=== PATIENT | female | born 1995 | race Caucasian/White ===

== ENCOUNTER 2020-04-06 15:51 | Emergency (ER) | payer OTHER, SELFPAY ==
[~2020-04-06] VITALS: Ht 154.9 cm; Wt 64.4 kg
[2020-04-06 15:51] VITALS: BP 137/83
[2020-04-06] MEDS ORDERED: KETOROLAC 30 MG/ML VIAL IVP ONE (16:30)
[2020-04-06 17:59] LABS: BASOPHILS % (AUTO) 0.3 % (0.0-2.0); EOSINOPHILS % (AUTO) 0.4 % (0.0-4.0); HEMATOCRIT 41.5 % (36-48); HEMOGLOBIN 14.2 g/dL (12.0-16.0); LYMPHOCYTES # (AUTO) 2.2 K/uL (2.5-16.5); LYMPHOCYTES % (AUTO) 23.2 % (20.5-51.1); MEAN CORPUSCULAR HEMOGLOBIN 33 pg (27-31); MEAN CORPUSCULAR HGB CONC 34 g/dL (33-37); MONOCYTES # (AUTO) 0.6 K/uL (0.8-1.0); MONOCYTES % (AUTO) 6.6 % (1.7-9.3); NEUTROPHILS # (AUTO) 6.7 K/uL (1.8-7.7); NEUTROPHILS % (AUTO) 69.5 % (42.2-75.2); PLATELET COUNT (AUTO) 278 K/uL (140-450); RED BLOOD CELL COUNT(AUTO) 4.33 MIL/uL (4.20-5.40); RED CELL DISTRIBUTION WIDTH 12.1 % (11.6-13.7); WHITE BLOOD COUNT (AUTO) 9.6 K/uL (4.8-10.8)
[2020-04-06] MEDS ORDERED: HYDROmorphone PFS 2 MG/ML SYR IVP SCH (18:00)
[2020-04-06 18:10] LABS: CARBON DIOXIDE 24.5 mmol/L (21-32); CREATININE 0.7 mg/dL (0.6-1.3); POTASSIUM 3.5 mmol/L (3.5-5.1)
[2020-04-06 18:10] LABS: BILIRUBIN,URINE NEGATIVE (NEGATIVE); BLOOD, URINE NEGATIVE (NEGATIVE); COLOR,URINE YELLOW (YELLOW); LEUKOCYTE ESTERASE ,URINE TRACE (NEGATIVE); NITRITE, URINE NEGATIVE (NEGATIVE); UGLUCOSE NEGATIVE (NEGATIVE)
[2020-04-06 18:12] LABS: APPEARANCE,URINE HAZY (CLEAR)
[2020-04-06 18:16] LABS: ALBUMIN 4.7 g/dL (3.4-5.0); TOTAL BILIRUBIN 1.5 mg/dL (0.0-1.0)
[2020-04-06 18:21] LABS: RBC,URINE NONE SEEN /HPF (0-5); WBC,URINE 0-5 /HPF (0-5)
[2020-04-06 19:18] VITALS: BP 128/81
== END 2020-04-06 19:18 | disposition home or self-care (01) ==
LOC: MED 15:51
DX: N94.89 Other specified conditions associated with female genital organs and menstrual cycle (principal); N83.292 Other ovarian cyst, left side
CPT/HCPCS: 36415; 76856; 80053; 81001; 81025; 85025; 93976; 96374; 96375; 99291; J1170; J1885; Q0092; 99284

== ENCOUNTER 2020-04-11 05:10 | Day surgery (SDC) | payer OTHER, SELFPAY ==
[2020-04-05 12:36] LABS: BASOPHILS % (AUTO) 0.2 % (0.0-2.0); EOSINOPHILS # (AUTO) 0.1 K/uL (0-0.4); EOSINOPHILS % (AUTO) 1.8 % (0.0-4.0); HEMATOCRIT 40.4 % (36-48); HEMOGLOBIN 13.6 g/dL (12.0-16.0); LYMPHOCYTES # (AUTO) 1.9 K/uL (2.5-16.5); LYMPHOCYTES % (AUTO) 36.1 % (20.5-51.1); MEAN CORPUSCULAR HEMOGLOBIN 33 pg (27-31); MEAN CORPUSCULAR HGB CONC 34 g/dL (33-37); MEAN CORPUSCULAR VOLUME 97.2 fL (80-94); MONOCYTES # (AUTO) 0.4 K/uL (0.8-1.0); MONOCYTES % (AUTO) 7.2 % (1.7-9.3); NEUTROPHILS # (AUTO) 2.9 K/uL (1.8-7.7); NEUTROPHILS % (AUTO) 54.7 % (42.2-75.2); PLATELET COUNT (AUTO) 252 K/uL (140-450); RED BLOOD CELL COUNT(AUTO) 4.16 MIL/uL (4.20-5.40); RED CELL DISTRIBUTION WIDTH 12.7 % (11.6-13.7); WHITE BLOOD COUNT (AUTO) 5.3 K/uL (4.8-10.8)
[2020-04-05 12:38] LABS: CARBON DIOXIDE 26.3 mmol/L (21-32); CREATININE 0.7 mg/dL (0.6-1.3); POTASSIUM 4.3 mmol/L (3.5-5.1); TOTAL BILIRUBIN 1.2 mg/dL (0.0-1.0)
[2020-04-05 12:39] LABS: ALBUMIN 4.6 g/dL (3.4-5.0)
[~2020-04-11] VITALS: Ht 154.9 cm; Wt 62.1 kg
[2020-04-11] MEDS ORDERED: NACL 0.9% 1,000 ML IV SCH (07:11)
[2020-04-11] MEDS ORDERED: MEPERIDINE 25 MG/ML SYR IVP PRN (07:15)
[2020-04-11] MEDS ORDERED: HYDROmorphone 1 MG/ML AMP IVP PRN (07:15)
[2020-04-11] MEDS ORDERED: ONDANSETRON 4 MG/2 ML VIAL IVP PRN (07:15)
[2020-04-11] MEDS ORDERED: BUPIVACAINE-MPF/EPI 0.25% 30 ML VIAL INJ ONE (07:35)
[2020-04-11] MEDS: HYDROmorphone PFS 2 MG/ML SYR ONE ×2 (08:50→09:00)
== END 2020-04-11 10:50 | disposition home or self-care (01) ==
LOC: MDS 05:10 → MMU 05:40 → MDS 10:50
PROVIDERS: ATTEND Obstetrics & Gynecology
DX: N83.202 Unspecified ovarian cyst, left side (principal); Z79.899 Other long term (current) drug therapy; Z11.59 Encounter for screening for other viral diseases
CPT/HCPCS: 58662; 80053; 81025; 84702; 85025; J1170; J3490; J7030; J7120; U0003

== ENCOUNTER 2020-04-27 18:33 | Emergency (ER) | payer OTHER, SELFPAY ==
[~2020-04-27] VITALS: Ht 154.9 cm; Wt 63.5 kg
[2020-04-27 18:48] VITALS: BP 108/77
--- NOTE | 2020-04-27 18:56 | NUR ---
PT AMB TO BED 12
--- NOTE | 2020-04-27 18:59 | NUR ---
25 y/o female from home c/o bilateral eye swelling and mild rash s/p eating a taco 15 min prior to arrival. Does not appear in respiratory distress. States 8/10 burning sensation to tongue and eyes. Airway intact. Redness noted to lt arm with itching at this time. RR even and unlabored, hob elevated. vss. LMP 04/11/2020 medhx: denies
[2020-04-27] MEDS ORDERED: methylPREDNISolone SS 125 MG/2 ML VIAL IVP STA (19:07)
[2020-04-27] MEDS ORDERED: diphenhydrAMINE 50 MG CAP PO STA (19:07)
--- NOTE | 2020-04-27 19:12 | NUR ---
RECIEVED REPORT FROM MANI PARKER. TRANSFER OF CARE AT THIS TIME.
--- NOTE | 2020-04-27 19:32 | NUR ---
Patient discharged with v/s stable. Written and verbal after care instructions given and explained. Patient alert, oriented and verbalized understanding of instructions. Ambulatory with steady gait. All questions addressed prior to discharge. ID band removed. Patient advised to follow up with PMD. Rx of MEDROL given. Patient educated on indication of medication including possible reaction and side effects. Opportunity to ask questions provided and answered.
[2020-04-27 19:33] VITALS: BP 108/77
== END 2020-04-27 19:32 | disposition home or self-care (01) ==
LOC: MED 18:33
DX: T78.1XXA Other adverse food reactions, not elsewhere classified, initial encounter (principal); X58.XXXA Exposure to other specified factors, initial encounter
CPT/HCPCS: 99283; Q0163; J2930

== ENCOUNTER 2020-04-30 10:32 | Emergency (ER) | payer OTHER, SELFPAY ==
[~2020-04-30] VITALS: Ht 152.4 cm; Wt 63.5 kg
[2020-04-30 10:47] VITALS: BP 126/85
[2020-04-30] MEDS ORDERED: ONDANSETRON 4 MG/2 ML VIAL IVP STA (11:22)
[2020-04-30] MEDS ORDERED: MORPHINE SULFATE 4 MG/ML SYR IVP STA (11:22)
[2020-04-30] MEDS ORDERED: NACL 0.9% 1,000 ML IV ONE (11:25)
[2020-04-30 12:58] LABS: APPEARANCE,URINE CLEAR (CLEAR); BILIRUBIN,URINE 1+ (NEGATIVE); BLOOD, URINE NEGATIVE (NEGATIVE); COLOR,URINE YELLOW (YELLOW); LEUKOCYTE ESTERASE ,URINE NEGATIVE (NEGATIVE); NITRITE, URINE NEGATIVE (NEGATIVE); UGLUCOSE NEGATIVE (NEGATIVE)
[2020-04-30 13:18] LABS: RBC,URINE NONE SEEN /HPF (0-5); WBC,URINE 0-5 /HPF (0-5)
[2020-04-30 13:23] LABS: BASOPHILS % (AUTO) 0.3 % (0.0-2.0); EOSINOPHILS % (AUTO) 0.4 % (0.0-4.0); HEMATOCRIT 41.6 % (36-48); HEMOGLOBIN 13.9 g/dL (12.0-16.0); LYMPHOCYTES # (AUTO) 1.8 K/uL (2.5-16.5); LYMPHOCYTES % (AUTO) 22.1 % (20.5-51.1); MEAN CORPUSCULAR HEMOGLOBIN 33 pg (27-31); MEAN CORPUSCULAR HGB CONC 34 g/dL (33-37); MEAN CORPUSCULAR VOLUME 97.1 fL (80-94); MONOCYTES # (AUTO) 0.4 K/uL (0.8-1.0); MONOCYTES % (AUTO) 4.4 % (1.7-9.3); NEUTROPHILS # (AUTO) 6.1 K/uL (1.8-7.7); NEUTROPHILS % (AUTO) 72.8 % (42.2-75.2); PLATELET COUNT (AUTO) 255 K/uL (140-450); RED BLOOD CELL COUNT(AUTO) 4.28 MIL/uL (4.20-5.40); RED CELL DISTRIBUTION WIDTH 12.5 % (11.6-13.7); WHITE BLOOD COUNT (AUTO) 8.3 K/uL (4.8-10.8)
[2020-04-30 13:41] LABS: ALBUMIN 4.5 g/dL (3.4-5.0); ANION GAP 17.5 (8-16); CREATININE 0.5 mg/dL (0.6-1.3); POTASSIUM 4.5 mmol/L (3.5-5.1); TOTAL BILIRUBIN 1.2 mg/dL (0.0-1.0)
[2020-04-30] MEDS ORDERED: HYDROmorphone PFS 2 MG/ML SYR IVP STA (14:28)
[2020-04-30 16:39] VITALS: BP 106/71
== END 2020-04-30 16:28 | disposition home or self-care (01) ==
LOC: MED 10:32
DX: K59.00 Constipation, unspecified (principal); Z98.890 Other specified postprocedural states
CPT/HCPCS: 36415; 74177; 80053; 81001; 81025; 83690; 84702; 85025; 96361; 96374; 96375; 99285; J1170; J2270; J2405; J7030; Q9967

== ENCOUNTER 2020-05-28 10:58 | Emergency (ER) | payer OTHER, SELFPAY ==
[~2020-05-28] VITALS: Ht 154.9 cm; Wt 63.5 kg
[2020-05-28 11:01] VITALS: BP 132/75
--- NOTE | 2020-05-28 11:07 | NUR ---
Patient ambulated to bed 7. RN evaluating patient at bedside.
--- NOTE | 2020-05-28 11:14 | NUR ---
25 Y/O F C/C LLQ ABDOMINAL PAIN RADIATING TO THE RLQ, 10/10 PAIN, SHARP SENSATION, NAUSEA, ACTIVITY EXACERBATES, PAIN MEDICATION ALLEVIATES X 1 DAY. PT DENIES DYSURIA,DIARREAH,VOMITING. NKA. NO HX. SX CYST REMOVAL, APRIL 11. NO RX. SIDE RAIL X1.
[2020-05-28] MEDS ORDERED: MORPHINE SULFATE 4 MG/ML SYR IVP ONE (11:25)
[2020-05-28] MEDS ORDERED: ONDANSETRON 4 MG/2 ML VIAL IVP ONE (11:25)
[2020-05-28] MEDS ORDERED: KETOROLAC 30 MG/ML VIAL IVP ONE ×2 (11:25→13:00)
[2020-05-28 11:53] LABS: BILIRUBIN,URINE NEGATIVE (NEGATIVE); BLOOD, URINE NEGATIVE (NEGATIVE); COLOR,URINE YELLOW (YELLOW); LEUKOCYTE ESTERASE ,URINE NEGATIVE (NEGATIVE); NITRITE, URINE NEGATIVE (NEGATIVE); PH,URINE 7.5 (5.0-9.0); UGLUCOSE NEGATIVE (NEGATIVE)
[2020-05-28 11:55] LABS: APPEARANCE,URINE SLIGHTLY HAZY (CLEAR)
[2020-05-28 12:46] LABS: BARBITURATE, URINE NEGATIVE ng/ml (NEG <=200); BENZODIAZEPINE, URINE NEGATIVE ng/mL (NEG <=200); CANNABINOID, URINE NEGATIVE ng/mL (NEG <=50); COCAINE, URINE NEGATIVE ng/mL (NEG <=300); OPIATE, URINE POSITIVE ng/mL (NEG <=2000); PHENCYCLIDINE SCREEN,URINE NEGATIVE ng/mL (NEG <=25)
[2020-05-28] MEDS ORDERED: HYDROcodone/APAP 5/325 MG 1 TAB TAB PO ONE (13:00)
--- NOTE | 2020-05-28 13:32 | NUR ---
Ultrasound at bedside.
--- NOTE | 2020-05-28 14:31 | NUR ---
PT RESTING IN BED, SIDE RAIL X1
[2020-05-28 14:56] VITALS: BP 120/82
--- NOTE | 2020-05-28 14:56 | NUR ---
IV removed, catheter intact and site benign. Applied folded 4x4 gauze and tape to stop bleeding.
--- NOTE | 2020-05-28 14:56 | NUR ---
Patient discharged with v/s stable. Written and verbal after care instructions given and explained. Patient alert, oriented and verbalized understanding of instructions. Ambulatory with steady gait. All questions addressed prior to discharge. ID band removed. Patient advised to follow up with PMD. Rx of [place] 5mg-325mg and Naprosyn 500mg given. Work excuse provided along with referral for GI Dr. Flores and OB Dr. Heck. Patient educated on indication of medication including possible reaction and side effects. Opportunity to ask questions provided and answered.
== END 2020-05-28 14:56 | disposition home or self-care (01) ==
LOC: MED 10:58
DX: R10.9 Unspecified abdominal pain (principal); Z98.890 Other specified postprocedural states
CPT/HCPCS: 76856; 80305; 81003; 81025; 93976; 96374; 96375; 96376; 99284; J1885; J2270; J2405

== ENCOUNTER 2020-06-19 08:16 | Emergency (ER) | payer OTHER, SELFPAY ==
[~2020-06-19] VITALS: Ht 154.9 cm; Wt 61.2 kg
[2020-06-19 08:19] VITALS: BP 130/79
--- NOTE | 2020-06-19 08:33 | NUR ---
PT AMBULATED TO BED 4 .
--- NOTE | 2020-06-19 08:35 | NUR ---
C/O RLQ ABD PAIN X LAST NIGHT.PT AOX4 , AFIBRILE, AMBULATORY WITH STEADY GAIT , SCE , FLAT SOFT ABDOMEN. MED HX: OVARIAN CYST REMOVAL 04/11/20
--- NOTE | 2020-06-19 08:39 | NUR ---
dr choudhary at bedside evaluating pt.
[2020-06-19] MEDS ORDERED: ONDANSETRON 4 MG ODT PO ONE (08:50)
[2020-06-19] MEDS ORDERED: KETOROLAC 60 MG/2 ML VIAL IM ONE (08:50)
[2020-06-19 09:16] LABS: APPEARANCE,URINE HAZY (CLEAR); BILIRUBIN,URINE NEGATIVE (NEGATIVE); BLOOD, URINE NEGATIVE (NEGATIVE); COLOR,URINE YELLOW (YELLOW); LEUKOCYTE ESTERASE ,URINE 1+ (NEGATIVE); NITRITE, URINE NEGATIVE (NEGATIVE); UGLUCOSE NEGATIVE (NEGATIVE)
[2020-06-19 09:25] LABS: RBC,URINE 0-5 /HPF (0-5)
[2020-06-19 09:26] LABS: WBC,URINE 0-5 /HPF (0-5)
--- NOTE | 2020-06-19 09:58 | NUR ---
DR MATOS AT BEDSIDE REEVALUATING PT.
[2020-06-19] MEDS ORDERED: fentaNYL citrate 0.05 MG/ML VIAL IM ONE (10:05)
--- NOTE | 2020-06-19 10:32 | NUR ---
PT COMFORTABLE IN BED ,STATING SHE WANTS TO GO HOME.DR MATOS INFORMED AND AWARE .
--- NOTE | 2020-06-19 10:59 | NUR ---
Patient discharged with v/s stable. Written and verbal after care instructions given and explained abdominal pain. Patient alert, oriented and verbalized understanding of instructions. Ambulatory with steady gait. All questions addressed prior to discharge. ID band removed. Patient advised to follow up with PMD. Rx of colace and miralax given. Patient educated on indication of medication including possible reaction and side effects. Opportunity to ask questions provided and answered.
[2020-06-19 11:00] VITALS: BP 107/70
== END 2020-06-19 10:59 | disposition home or self-care (01) ==
LOC: MED 08:16
DX: R10.31 Right lower quadrant pain (principal); F11.90 Opioid use, unspecified, uncomplicated; R11.0 Nausea; Z98.890 Other specified postprocedural states
CPT/HCPCS: 76705; 76830; 81001; 81025; 87086; 93976; 96372; 99285; J1885; J3010; Q0092; Q0162